=== PATIENT | female | born 1935 | race Two or more races ===

== ENCOUNTER 2018-04-12 10:53 | Emergency (ER) | payer OTHER, MEDICAID ==
[~2018-04-12] VITALS: Ht 154.9 cm; Wt 52.2 kg
--- NOTE | 2018-04-12 10:55 | NUR ---
ADMIT AN82 YO FEMALE VIA AMBULANCE IN RM 2A WITH A C/O FREQUENT BURPING AND SLIGHT ABDOMENAL PAIN LEVEL 4. AND ALSO PAIN ON THE LEFT HAND, NO TRAUMA NOTED. SPEAKS ONLY [place].
--- NOTE | 2018-04-12 10:56 | NUR ---
SEEN AND EXAMINED BY MD WITH NEW ORDERS.
--- NOTE | 2018-04-12 11:00 | NUR ---
LAB DRAWN AND TOLERATED WELL.
--- NOTE | 2018-04-12 11:10 | NUR ---
LAB DRAW DONE.
--- NOTE | 2018-04-12 11:10 | NUR ---
EKG DONE AT THE BEDSIDE. SR WITH SLIGHT ST DEPRESSION. MD AWARE. NO C/O CP NOTED AT THIS TIME.
--- NOTE | 2018-04-12 11:10 | NUR ---
EKG DONE AT THE BEDSIDE ORDERED.
[2018-04-12] MEDS ORDERED: CYAN-10 IM (11:13)
[2018-04-12 11:17] LABS: BASOPHILS # (AUTO) 0.1 K/uL (0.0-8.0); BASOPHILS % (AUTO) 0.7 % (0.0-2.0); EOSINOPHILS # (AUTO) 0.1 K/uL (0.0-0.7); EOSINOPHILS % (AUTO) 1.3 % (0.0-7.0); HEMATOCRIT 28.9 % (31.2-41.9); HEMOGLOBIN 9.6 g/dL (10.9-14.3); LYMPHOCYTES # (AUTO) 1.9 K/uL (20.0-40.0); LYMPHOCYTES % (AUTO) 18.8 % (20.5-51.5); MEAN CORPUSCULAR HEMOGLOBIN 24.7 uug (24.7-32.8); MEAN CORPUSCULAR HGB CONC 33 g/dL (32.3-35.6); MEAN CORPUSCULAR VOLUME 74.2 fL (75.5-95.3); MONOCYTES # (AUTO) 0.7 K/uL (2.0-10.0); MONOCYTES % (AUTO) 7.1 % (0.0-11.0); NEUTROPHILS # (AUTO) 7.1 K/uL (1.8-8.9); NEUTROPHILS % (AUTO) 72.1 % (38.5-71.5); PLATELET COUNT (AUTO) 295 K/uL (179-408); WHITE BLOOD COUNT (AUTO) 9.9 K/uL (3.8-11.8)
[2018-04-12 11:22] LABS: CARBON DIOXIDE 23 mmol/L (21-32); CHLORIDE 103 mmol/L (98-107); CREATININE 0.8 mg/dL (0.6-1.3); GLUCOSE 136 mg/dL (74-106); POTASSIUM 3.9 mmol/L (3.5-5.1); UREA NITROGEN, BLOOD 18 mg/dL (7-18)
--- NOTE | 2018-04-12 11:25 | NUR ---
STARTED AN IV LINE G 22 ON THE LEFT FA, ABDOUL.
--- NOTE | 2018-04-12 11:25 | NUR ---
STARTED A HEPLOCK ON THE LEFT FA G22 ORDERED.
[2018-04-12 11:28] LABS: ALANINE AMINOTRANSFERASE 19 U/L (14-59); ALKALINE PHOSPHATASE 113 U/L (50-136); ASPARTATE AMINOTRANSFERASE 19 U/L (15-37); BILIRUBIN,DIRECT 0.2 mg/dL (0.0-0.2); LIPASE 152 U/L (73-393); TOTAL PROTEIN, SERUM 7.7 g/dL (6.4-8.2)
--- NOTE | 2018-04-12 11:30 | NUR ---
PCXR DONE AT THE BEDSIDE ORDERED.
--- NOTE | 2018-04-12 11:30 | NUR ---
PCXR DONE AT THE BEDSIDE ORDERED.
[2018-04-12 11:33] LABS: LYMPHOCYTES % (MANUAL) 32 % (20-40); NEUTROPHILS % (MANUAL) 68 % (42-75)
[2018-04-12] MEDS ORDERED: IOHEXOL 300MG/ML 100 ML INFUS..BTL ONE (11:44)
[2018-04-12] MEDS ORDERED: IV NORMAL SALINE 250 ML IV ONE (11:44)
[2018-04-12] MEDS ORDERED: SWABABLE VALVE TRANSFER SET EA MC ONE (11:44)
--- NOTE | 2018-04-12 11:55 | NUR ---
PT WENT TO CT SCAN VIA [facility] FOR CT CHEST, ABD AND PELVIS WITH CONTRAST. CONSENT SIGNED.
[2018-04-12] MEDS: METOCLOPRAMIDE HCL 10 MG/2 ML VIAL IV ONE ×2 (12:03→12:06)
[2018-04-12] MEDS ORDERED: METOCLOPRAMIDE HCL 10 MG/2 ML VIAL ONE (12:04)
--- NOTE | 2018-04-12 12:06 | NUR ---
PT MEDICATED WITH REGLAN 10MG SLOW IVP ORDERED.
--- NOTE | 2018-04-12 12:06 | NUR ---
PT MEDICATED WITH REGLAN 10MG SLOW IVP ORDERED.
[2018-04-12] MEDS ORDERED: PANTOPRAZOLE SODIUM 40 MG VIAL IV ONE (13:15)
[2018-04-12] MEDS ORDERED: PANTOPRAZOLE SODIUM 40 MG VIAL ONE (13:35)
--- NOTE | 2018-04-12 16:50 | NUR ---
PT'S DAUGHTER CAME IN TO [employer]PER[employer] 2ND SHIFT THE PT. DISCHARGED INSTRUCTIONS AND PRESCRIPTION GIVEN TO DAUGHTER WITH GOOD UNDERSTANDING. INSTRUCTED TO FOLLOW UP WITH DR QING GOLD IN [facility] OFFICE WH TEL NO [phone] TOMORROW APR 13, 2018 AT 1110AM. DAUGHTER UNDERSTOOD. PT DISCHARGED HOME AMBULATORY ACCOMPANIED BY DAUGHTER IN STABLE CONDITION. IVF ENDED.
[2018-04-12 18:58] VITALS: BP 123/76
== END 2018-04-12 16:50 | disposition home or self-care (01) ==
LOC: ER 10:53
DX: R10.13 Epigastric pain (principal); R07.9 Chest pain, unspecified; M79.642 Pain in left hand; Z79.899 Other long term (current) drug therapy
CPT/HCPCS: 36415; 71045; 71260; 74177; 80048; 80076; 83690; 84484 ×2; 85018; 85025; 93005; 96374; 96375; 99284; C9113; J2765; Q9967; 70030-TC; A4663; J7030; J7050